=== PATIENT | male | born 1975 | race Caucasian/White ===

== ENCOUNTER 2016-11-20 07:32 | Emergency (ER) | payer OTHER ==
[2016-11-20] MEDS ORDERED: diphenhydrAMINE 25 MG Cap PO ONE (07:49)
[2016-11-20] MEDS ORDERED: methylPREDNISolone Sodium Succinate 125 MG/2 ML SDV IM ONE (07:50)
--- NOTE | 2016-11-20 07:55 | EDM.PDOC ---
ED HPI Allergic Reaction - General Chief Complaint: Allergic Reaction Stated Complaint: ALLERGIC REACTION? Time Seen by Provider: 11/20/16 07:51 Source: Reports: Patient, Family History Limitations: Reports: No limitations - History of Present Illness INITIAL COMMENTS - FREE TEXT/NARRATIVE: pt woke up with a headache and he felt that was very unusual as he don,t get headaches. He put on a new pair of jeans and he took a ibuprofen and he began to feel like his throat was swelling and his lips were numb. He felt slightly sob. He did not get hives but he felt itchy all over. Timing/Duration: Reports: Minutes:, Gradual onset Location, Skin: Reports: face, generalized Characteristics: Reports: other (no rash) - Related Data Allergies/ADRs: Allergies Allergy/AdvReac Type Severity Reaction Status Date / Time metals Allergy Rash Uncoded 11/20/16 07:41 Home Meds: Home Meds NK [No Known Home Meds] 11/20/16 [History] Past Medical History Other Dermatologic History: vitiligo Social & Family History - Tobacco Use Smoking Status *Q: Never Smoker - Caffeine Use Caffeine Use: Reports: Coffee - Recreational Drug Use Recreational Drug Use: No ED ROS ALLERGIC REACTION - Review of Systems Review Of Systems: See Below Constitutional: Reports: no symptoms HEENT: Reports: Other (numbness around his lips nd he felt like his throat was swolen. ) Endocrine: Reports: no symptoms GI/Abdominal: Reports: No symptoms : Reports: no symptoms ED EXAM GENERAL NO PERIP PULSE - Physical Exam Exam: See Below Text/Narrative:: pt is feeling numbness and swelling in his lips. He feels swelling in his throat. Exam Limited By: No limitations General Appearance: alert, no apparent distress Ears: normal TMs Nose: normal inspection Throat/Mouth: Other (uvula looks slightly swollen. Pt has slight swelling in his lips. ) Head: atraumatic Neck: normal inspection Respiratory/Chest: no respiratory distress, other ( there was no wheezing present. ) Cardiovascular: regular rate, rhythm Extremities: normal inspection Psychiatric: anxious Skin Exam: No rash Course - Vital Signs Last Recorded V/S: Last Vital Signs Temp 36.2 C 11/20/16 08:04 Pulse 66 11/20/16 08:04 Resp 14 11/20/16 08:04 BP 97/76 11/20/16 08:04 Pulse Ox 94 L 11/20/16 08:04 - Orders/Labs/Meds Labs: Laboratory Tests 11/20/16 11/20/16 Range/Units 07:50 07:50 WBC 6.1 (4.5-11.0) K/uL RBC 6.36 H (4.30-5.90) M/uL Hgb 18.1 H* (12.0-15.0) g/dL Hct 51.4 (40.0-54.0) % MCV 81 (80-98) fL MCH 29 (27-31) pg MCHC 35 (32-36) % Plt Count 285 (150-400) K/uL Neut % (Auto) 51 (36-66) % Lymph % (Auto) 34 (24-44) % Gilmer % (Auto) 12 H (2-6) % Eos % (Auto) 3 (2-4) % Baso % (Auto) 1 (0-1) % Sodium 138 L (140-148) mmol/L Potassium 4.2 (3.6-5.2) mmol/L Chloride 103 (100-108) mmol/L Carbon Dioxide 30 (21-32) mmol/L Anion Gap 9.2 (5.0-14.0) mmol/L BUN 21 H (7-18) mg/dL Creatinine 1.2 (0.8-1.3) mg/dL Est Cr Clr Drug Dosing 83.47 mL/min Estimated GFR (MDRD) > 60 (>60) Glucose 107 H (74-106) mg/dL Calcium 9.2 (8.5-10.1) mg/dL Meds: Medications Discontinued Medications Generic Name Dose Route Start Last Admin Trade Name Freq PRN Reason Stop Dose Admin Diphenhydramine HCl 50 mg 11/20/16 07:49 11/20/16 07:54 Benadryl PO 11/20/16 07:50 50 mg ONETIME ONE Administration Methylprednisolone Sodium Succinate 125 mg 11/20/16 07:50 11/20/16 07:54 Solu-Medrol IM 11/20/16 07:51 125 mg ONETIME ONE Administration - Re-Assessments/Exams Free Text/Narrative Re-Assessment/Exam: 11/20/16 08:00 pt was given benadryl 50mg po and solumedrol 125 mg im. 11/20/16 08:32 lab work was normal. Departure - Departure Time of Disposition: 08:32 Disposition: Home, Self-Care 01 Condition: fair Clinical Impression: Allergic reaction Forms: ED Department Discharge Care Plan Goals: rtc if problems, benadryl 50mg q 8h through the day
[2016-11-20 08:05] VITALS: BP 97/76
== END 2016-11-20 08:46 | disposition home or self-care (01) ==
LOC: JP.ED 07:32
DX: R20.0 Anesthesia of skin (principal); T78.40XA Allergy, unspecified, initial encounter; Z91.09 Other allergy status, other than to drugs and biological substances
CPT/HCPCS: 36415; 80048; 85025; 96372; 99284; A9270; J2930

== ENCOUNTER 2022-09-01 08:13 | Inpatient (IN) | payer OTHER ==
[2022-09-01] MEDS ORDERED: Sodium Chloride 0.9% 10 ML Syringe FLUSH PRN ×2 (08:35→12:37)
[2022-09-01] MEDS ORDERED: Iopamidol 612 MG/ML 100 ML Bottle IV STA (08:57)
[2022-09-01] MEDS ORDERED: Sodium Chloride 0.9% 50 ML IV STA (08:58)
[2022-09-01] MEDS ORDERED: Piperacillin/Tazobactam 3.375 GM in Sodium Chloride 0.9% 50 ML IV ONE (10:22)
[2022-09-01] MEDS ORDERED: Piperacillin/Tazobactam 4.5 GM in Sodium Chloride 0.9% 50 ML IV ONE (10:27)
[2022-09-01] MEDS ORDERED: Sodium Chloride 0.9% 1,000 ML IV SCH (10:30)
[2022-09-01] MEDS ORDERED: HYDROmorphone 0.5 MG/0.5 ML Syringe IVPUSH ONE (10:51)
[2022-09-01 11:38] LABS: CORONAVIRUS COVID-19 NAA NEGATIVE (NEGATIVE)
[2022-09-01] MEDS ORDERED: Ondansetron 4 MG/2 ML SDV IV PRN (12:37)
[2022-09-01] MEDS: HYDROmorphone 0.5 MG/0.5 ML Syringe IVPUSH PRN ×3 (12:43→22:09)
[2022-09-01] MEDS: Enoxaparin 40 MG/0.4 ML Syringe SUBCUT SCH (13:54)
[2022-09-01] MEDS: Ampicillin/Sulbactam Na 1.5 GM in Sodium Chloride 0.9% 50 ML IV SCH ×2 (13:54→19:32)
[2022-09-01] MEDS: Sodium Chloride 0.9% 1,000 ML IV SCH (19:32)
[2022-09-01] MEDS: Acetaminophen 325 MG Tab PO PRN (22:13)
[2022-09-02] MEDS: Ampicillin/Sulbactam Na 1.5 GM in Sodium Chloride 0.9% 50 ML IV SCH ×4 (02:55→19:15)
[2022-09-02] MEDS: Sodium Chloride 0.9% 1,000 ML IV SCH (02:55)
[2022-09-02] MEDS: Enoxaparin 40 MG/0.4 ML Syringe SUBCUT SCH (08:32)
[2022-09-02] MEDS ORDERED: Docusate Sodium 100 MG Cap PO PRN (10:08)
[2022-09-02] MEDS: Acetaminophen 325 MG Tab PO PRN (17:39)
[2022-09-03 02:24] VITALS: BP 109/67; PULSE 50
[2022-09-03] MEDS: Ampicillin/Sulbactam Na 1.5 GM in Sodium Chloride 0.9% 50 ML IV SCH ×2 (02:25→07:34)
[2022-09-03] MEDS: Enoxaparin 40 MG/0.4 ML Syringe SUBCUT SCH (09:48)
== END 2022-09-03 09:30 | disposition home or self-care (01) | DRG 392 ==
LOC: JP.ED 08:13 → JP.MS 11:34
PROVIDERS: ADMIT Hospitalist; ATTEND Internal Medicine
DX: K57.20 Diverticulitis of large intestine with perforation and abscess without bleeding (principal); Z20.822 Contact with and (suspected) exposure to COVID-19; Z88.8 Allergy status to other drugs, medicaments and biological substances; K59.00 Constipation, unspecified
CPT/HCPCS: 0241U; 36415; 74177; 80048; 81001; 83735; 85025; 85027; 86140; 96361; 96365; 96375; 99221; 99231; 99238; 99285; 99285-25; A9270-GY; J0295; J1170; J1650; J2543; J3490; J7030; Q9967

== ENCOUNTER 2022-10-19 05:51 | Day surgery (SDC) | payer OTHER ==
[2022-10-19] MEDS ORDERED: Midazolam 1 MG/ML 2 ML SDV ONE (06:56)
[2022-10-19] MEDS ORDERED: Propofol 200 MG/20 ML SDV ONE ×2 (06:56→07:52)
[2022-10-19] MEDS ORDERED: fentaNYL 50 MCG/ML SDV ONE (06:56)
[2022-10-19] MEDS ORDERED: Lactated Ringers 1,000 ML IV SCH (07:30)
[2022-10-19 09:05] VITALS: BP 97/60; PULSE 62
== END 2022-10-19 09:16 | disposition home or self-care (01) ==
LOC: JP.SDS 05:51
PROVIDERS: ATTEND Student in an Organized Health Care Education/Training Program
DX: K57.30 Diverticulosis of large intestine without perforation or abscess without bleeding (principal); K63.89 Other specified diseases of intestine; Z87.19 Personal history of other diseases of the digestive system
CPT/HCPCS: 45380; 88305; J2250; J2704; J3010; J7120

== ENCOUNTER 2024-07-09 03:30 | Emergency (ER) | payer OTHER ==
[2024-07-09 04:08] LABS: BASOPHILS ABSOLUTE AUTO 0.03 K/uL (0.00-0.10); BASOPHILS PERCENT AUTO 0.4 % (0.1-1.3); EOSINOPHILS ABSOLUTE AUTO 0.23 K/uL (0.00-0.40); EOSINOPHILS PERCENT AUTO 2.8 % (0.0-5.4); HEMOGLOBIN 14.4 g/dL (12.9-16.9); IMMATURE GRAN ABSOLUTE AUTO 0.04 K/uL (0.00-0.23); IMMATURE GRAN PERCENT AUTO 0.5 % (0.0-0.7); LYMPHOCYTES ABSOLUTE AUTO 1.35 K/uL (0.8-3.3); LYMPHOCYTES PERCENT AUTO 16.2 % (11.4-47.7); MEAN CORPUSCULAR HEMOGLOBIN 29.6 pg (31.6-35.5); MEAN CORPUSCULAR VOLUME 82.1 fL (81.4-99.0); MONOCYTES ABSOLUTE AUTO 0.78 K/uL (0.20-0.90); MONOCYTES PERCENT AUTO 9.4 % (3.3-12.6); NEUTROPHILS ABSOLUTE AUTO 5.91 K/uL (1.0-7.6); NEUTROPHILS PERCENT AUTO 70.7 % (40.0-78.1); PLATELET COUNT,PLT 330 K/uL (130-375); RED BLOOD CELL COUNT 4.87 M/uL (4.14-5.76); WHITE BLOOD CELL COUNT,WBC 8.3 K/uL (3.2-11.0)
[2024-07-09] MEDS: LORazepam 2 MG/ML SDV IVPUSH ONE (04:09)
[2024-07-09] MEDS: HYDROmorphone 0.5 MG/0.5 ML Syringe IVPUSH ONE (04:10)
[2024-07-09] MEDS: Sodium Chloride 0.9% 1,000 ML IV SCH (04:12)
[2024-07-09] MEDS: Iopamidol 612 MG/ML 100 ML Bottle IV STA (04:18)
[2024-07-09] MEDS: Sodium Chloride 0.9% 80 ML IV STA (04:18)
[2024-07-09] MEDS: Iopamidol 612 MG/ML 30 ML SDV PO ONE (04:18)
[2024-07-09 04:28] LABS: ALANINE AMINOTRANSFERASE,ALT 36 U/L (12-78); ALBUMIN 3.7 g/dL (3.4-5.0); ALKALINE PHOSPHATASE 95 U/L (46-116); ANION GAP 9.3 mmol/L (5.0-14.0); ASPARTATE AMNIOTRANSFERASE,AST 20 U/L (15-37); BILIRUBIN TOTAL 0.5 mg/dL (0.2-1.0); BLOOD UREA NITROGEN,BUN 22 mg/dL (7-18); CALCIUM 9.3 mg/dL (8.5-10.1); CARBON DIOXIDE,CO2 29 mmol/L (21-32); CHLORIDE,CL 102 mmol/L (100-108); ESTIMATED GFR 94 mL/min (>60); GLUCOSE RANDOM 108 mg/dL (74-106); POTASSIUM,K 4.2 mmol/L (3.6-5.2); PROTEIN TOTAL,TP 7.3 g/dL (6.4-8.2); SODIUM,NA 140 mmol/L (140-148)
[2024-07-09 05:52] VITALS: BP 123/80; PULSE 81
== END 2024-07-09 05:50 | disposition home or self-care (01) ==
LOC: JP.ED 03:30
DX: G89.18 Other acute postprocedural pain (principal); R10.9 Unspecified abdominal pain; Z91.048 Other nonmedicinal substance allergy status
CPT/HCPCS: 36415; 71260; 74177; 80053; 83605; 83690; 85025; 96361; 96374; 96375; 99284; J1171; J2060; J3490; J7030; Q9967

== ENCOUNTER 2024-07-09 18:44 | Emergency (ER) | payer OTHER ==
[2024-07-09] MEDS: Alum Hydrox/Mag Hydrox/Simeth 15 ML, Lidocaine 2% 15 ML PO ONE (19:02)
[2024-07-09] MEDS: Ondansetron 4 MG Tab.DIS PO ONE (19:19)
[2024-07-09 19:31] LABS: BASOPHILS ABSOLUTE AUTO 0.01 K/uL (0.00-0.10); BASOPHILS PERCENT AUTO 0.1 % (0.1-1.3); EOSINOPHILS ABSOLUTE AUTO 0.16 K/uL (0.00-0.40); EOSINOPHILS PERCENT AUTO 2.3 % (0.0-5.4); HEMATOCRIT 39.2 % (38.4-49.7); IMMATURE GRAN ABSOLUTE AUTO 0.02 K/uL (0.00-0.23); IMMATURE GRAN PERCENT AUTO 0.3 % (0.0-0.7); LYMPHOCYTES ABSOLUTE AUTO 1.53 K/uL (0.8-3.3); LYMPHOCYTES PERCENT AUTO 21.5 % (11.4-47.7); MEAN CORPUSCULAR HEMOGLOBIN 29.5 pg (31.6-35.5); MEAN CORPUSCULAR HGB CONC 35.7 g/dL (31.6-35.5); MEAN CORPUSCULAR VOLUME 82.5 fL (81.4-99.0); MONOCYTES ABSOLUTE AUTO 0.86 K/uL (0.20-0.90); MONOCYTES PERCENT AUTO 12.1 % (3.3-12.6); NEUTROPHILS ABSOLUTE AUTO 4.53 K/uL (1.0-7.6); NEUTROPHILS PERCENT AUTO 63.7 % (40.0-78.1); PLATELET COUNT,PLT 327 K/uL (130-375); RED BLOOD CELL COUNT 4.75 M/uL (4.14-5.76); WHITE BLOOD CELL COUNT,WBC 7.1 K/uL (3.2-11.0)
[2024-07-09] MEDS: LORazepam 2 MG/ML SDV IVPUSH ONE (19:40)
[2024-07-09] MEDS: HYDROmorphone 0.5 MG/0.5 ML Syringe IVPUSH ONE (19:42)
[2024-07-09] MEDS: Sodium Chloride 0.9% 1,000 ML IV SCH (19:42)
[2024-07-09 19:47] LABS: CALCIUM 9.2 mg/dL (8.5-10.1); CREATININE 0.9 mg/dL (0.8-1.3); EST CRCL DRUG DOSING (CG) 102.56 mL/min; POTASSIUM,K 3.9 mmol/L (3.6-5.2)
[2024-07-09 19:49] LABS: ANION GAP 10.9 mmol/L (5.0-14.0)
[2024-07-09] MEDS: fentaNYL 100 MCG/2 ML SDV IVPUSH ONE (20:33)
[2024-07-09] MEDS: Metoclopramide 10 MG/2 ML SDV IVPUSH ONE (21:23)
[2024-07-09 22:32] VITALS: BP 142/77; PULSE 62
== END 2024-07-09 22:30 | disposition home or self-care (01) ==
LOC: JP.ED 18:44
DX: G89.18 Other acute postprocedural pain (principal); R10.31 Right lower quadrant pain; R10.32 Left lower quadrant pain; Z91.048 Other nonmedicinal substance allergy status
CPT/HCPCS: 36415; 80048; 83605; 83690; 85025; 96361; 96374; 96375; 99283; 99284; A9270; J2060; J2765; J3010; J7030; Q0162